=== PATIENT | male | born 1995 | race Caucasian/White ===

== ENCOUNTER 2019-10-15 21:33 | Emergency (ER) | payer SELFPAY ==
[2019-10-15 21:47] VITALS: BP 155/79; PULSE 85; RESP 14; TEMP 36.8; O2SAT 99; BMI 29.0
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
== END 2019-10-15 21:55 | disposition home or self-care (01) ==
PROVIDERS: Emergency Provider Emergency Medicine; PCP Family Medicine
DX: Z04.1 Encounter for examination and observation following transport accident (principal); V89.2XXA Person injured in unspecified motor-vehicle accident, traffic, initial encounter; F17.210 Nicotine dependence, cigarettes, uncomplicated
CPT/HCPCS: 12345; 99281; 99282

== ENCOUNTER → 2020-08-12 08:42 | Outpatient (BNVA) | payer OTHER, BC, SELFPAY | PROVIDERS: PCP Family Medicine; Visit Provider Surgery | DX: K64.9 Unspecified hemorrhoids (principal); Z20.822 Contact with and (suspected) exposure to COVID-19 | CPT/HCPCS: 87635 ==

== ENCOUNTER 2020-08-17 06:56 | Day surgery (SDC) | payer OTHER, BC, SELFPAY ==
[2020-08-16 17:51] VITALS: BMI 29.9
[2020-08-17] VITALS (8 sets, daily range): BP systolic 107–148; BP diastolic 55–94; PULSE 52–71; RESP 16–20; TEMP 36.1–37; O2SAT 96–100
--- NOTE | 2020-08-17 07:48 | W.PM.OPSUD ---
Surgery/Procedure H&P Update DATE OF PROCEDURE: August 17, 2020 DATE H&P PERFORMED: 08/05/20 H&P UPDATE INFORMATION: I have reviewed H&P completed within last 30 days, I have examined patient prior to procedure and No changes to prior documentation PREOP DIAGNOSIS: Posterior anal fissure PRIMARY INDICATION FOR PROCEDURE: The same PLANNED PROCEDURE: Operation Date: 08/17/20 08:15 Proposed Procedures p Exam Under Anesthesia 83884 [id number] K64.9(Not Applicable) - David Dunham MD s Sphincterotomy(Not Applicable) - David Dunham MD
[2020-08-17] MEDS: sodium chloride 0.9% 1,000 ML 30 ML IV (07:53)
[2020-08-17] MEDS: acetaminophen 1,000 MG/100 ML PIGGYBACK 400 MG IV (07:54)
--- NOTE | 2020-08-17 07:56 | ANES.PREANE2 ---
Pre-Anesthetic Assessment Pre-Anesthetic Assessment: Height/Weight: Height 1.91 m Weight 108.862 kg Temp Pulse Resp BP Pulse Ox 97.8 F 63 18 148/92 99 08/17/20 07:56 08/17/20 07:56 08/17/20 07:56 08/17/20 07:56 08/17/20 07:56 Preop Diagnosis: Posterior anal fissure Proposed Procedure: Operation Date: 08/17/20 08:15 Proposed Procedures p Exam Under Anesthesia 63390 [id number] K64.9(Not Applicable) - David Dunham MD s Sphincterotomy(Not Applicable) - David Dunham MD Was Beta Maye taken within 24 hours: N/A Was Clonidine taken within 24 hours: N/A Last intake: Intake Last Liquid Date 08/16/20 Last Liquid Time 20:00 Last Solid Date 08/16/20 Last Solid Time 20:00 Social: Social History: Tobacco and No alcohol Exam: Pre-Anes Outpt Exam: alert, oriented x 3, clear to auscultation bilaterally and regular rate & rhythm Airway: Cervical ROM: WNL MP: 2 Dentition: Full CV/HEM: Comments: told he had Murmur as a child, states he can do vigorous activities, no symptoms ever Anesthetic Plan: ASA status: 1 Anesthesia: General Risk of > 500 ml blood loss (7ml/kg in children): No Meds/Allergies Current Medications: Current Medications Generic Name Dose Route Start Last Admin Trade Name Freq PRN Reason Stop Dose Admin Sodium Chloride 1,000 mls @ 30 ml s/hr 08/17/20 07:30 08/17/20 07:53 Sodium Chloride 0.9% IV 08/18/20 07:29 30 mls/hr .Q24H YANCI Administration PFSH Anesthesia PFSH: Family History Denies family history of Bleeding disorder Social History Smoking and tobacco status: current every day smoker cigarettes Packs smoked per day: 1 Data Anesthesia Cardiac Studies: No Data to Display
[2020-08-17] MEDS: piperacillin-tazobactam 3.375 GM in sodium chloride 0.9% (plus) 50 ML IV (08:11)
--- NOTE | 2020-08-17 09:03 | PM.OP ---
Operative Report Date of procedure: August 17, 2020 Pre-op Diagnosis: Posterior anal fissure Post-op Diagnosis: Posterior anal fissure and concomitant smaller anterior anal fissure Procedure Done: Examination under anesthesia Right open lateral sphincterotomy Implants: Surgicel/Xeroform for anal packing Specimens removed/disposition: No specimens Surgeon: David Dunham Distribution Warehouse Manager: nuclear worker technician Anna Circulating nurse Muriel Lucio Anesthesia: General (LMA ob nurse Peewee) Estimated blood loss (mL): 10 Condition: stable Disposition: same day Brief History: Symptomatic chronic posterior anal fissure. Full H&P and full consent per chart Procedure: Patient was identified in the holding area and was taken back to the operating room, which was first placed in supine position got LMA by anesthesia, prophylactic IV antibiotics were given per protocol,Timeout was done verifying the patient's name/date of /planned procedure and destination after the procedure, all were in agreement. Patient was placed in lithotomy position were all pressure points were padded, Prep and drape was done thereafter under the usual sterile technique,started by pudendal nerve block bilaterally , Exparel was injected 15 mL each side,guided by the examining finger towards the ischial spine bilaterally, followed by that digital rectal examination showed no masses were appreciated or bleeding. Anoscope was then introduced I was able to identify small anterior and posterior anal fissure. I placed a wet 4 x 4 inside the anal canal to prevent stools(poor prep) from encroaching on the wound site, that was taken out at the end of the procedure. The anoscope was then retrieved At that point a stab incision was created at the groove between the external and internal anal sphincters to the right of the anal canal around 9:00 o'clock, a blunt-tipped hemostat was introduced while my left index finger in the anal canal to safeguard. I Was able to deliver the white glistening muscle fibers of the internal sphincter, and Bovie cautery was used to divide that portion of the muscle, appropriate hemostasis was achieved, followed by thorough irrigation of the wound with warm normal saline and a 3-0 chromic catgut for approximation of the skin edges. At that point after removal of the 4 x 4'sx1, hemostasis was applied to the bed of the posterior anal fissure and 2-0 chromic catgut as a [id number] for hemostasis were placed. I applied a piece of Xeroform impregnated lidocaine 2% jelly at the site of the wound and followed by ABD ,a surgical pants was then placed to hold the dressing in place. Count was completed at the end of the procedure, patient was then extubated and was taken to the recovery room in stable condition I was present for the whole entire procedure
--- NOTE | 2020-08-17 09:13 | P.PCN_ITS ---
PACU note PACU note: VSS, Good respiratory effort, report to PACKAGE CENTER SUPERVISOR Post-Anesthesia Exam: awake
--- NOTE | 2020-08-17 09:13 | PM.PACU ---
PACU note PACU note: VSS, Good respiratory effort, report to CHAMBER WALKER Post-Anesthesia Exam: awake
--- NOTE | 2020-08-17 09:15 | SUR.PHASEI ---
PT SLEEPS QUIETLY WITH GOOD RESP NOTED ORAL AIRWAY IN PLACE,VSS, IV PATENT, NO DISTRESS NOTED
--- NOTE | 2020-08-17 09:31 | SUR.PHASEI ---
0927 PT AWAKES ORAL AIRWAY OUT AND PT ON RA TRIAL, VSS.
--- NOTE | 2020-08-17 14:29 | ANE.PACU2 ---
Inpatient post-anesthesia follow up: Vital signs: Temperature 97 F Pulse Rate 58 Respiratory Rate 18 Blood Pressure 148/92 Pulse Oximetry 99 Oxygen Delivery Me thod Room Air Oxygen Flow Rate 8 Fraction of Inspir ed Oxygen Hydration adequate: Yes Nausea and vomiting: No Pain level: 1 Mental status: Baseline
== END 2020-08-17 10:30 | disposition home or self-care (01) ==
PROVIDERS: PCP Family Medicine; Visit Provider Surgery
PROC: (CPT 46080; principal; 2020-08-17 08:05)
PROC: (CPT 46080; 2020-08-17 08:05)
DX: K60.2 Anal fissure, unspecified (principal); F17.210 Nicotine dependence, cigarettes, uncomplicated
CPT/HCPCS: 46080; 96365; C9290; J2250; J2405; J2543; J2704; J3010; J3490; J7030

== ENCOUNTER → 2023-09-14 09:59 | Outpatient (BNVA) | payer BC, MEDICAID, SELFPAY | PROVIDERS: PCP Family Medicine; Visit Provider Family Medicine | DX: K21.9 Gastro-esophageal reflux disease without esophagitis (principal); G47.33 Obstructive sleep apnea (adult) (pediatric); Z13.6 Encounter for screening for cardiovascular disorders | CPT/HCPCS: 80053; 80061; 83036 ==

== ENCOUNTER 2023-12-11 15:13 | Outpatient (CLI) | payer BC, SELFPAY | END 2023-12-11 15:14 | disposition home or self-care (01) | LOC: SLEEP 15:16 | PROVIDERS: PCP Family Medicine; Visit Provider Family Medicine | DX: G47.33 Obstructive sleep apnea (adult) (pediatric) (principal) | CPT/HCPCS: 80053; 80061; 83036; G0399 ==